=== PATIENT | female | born 1935 | race Caucasian/White ===

== ENCOUNTER 2022-05-05 19:23 | Inpatient (IN) | payer MEDICARE ==
[~2022-05-05] VITALS: Ht 170.2 cm; Wt 83.0 kg
[~2022-05-05 19:23] MED LIST: 3IN1 COMMODE; ACETAMINOPHEN325 MG PO; ALPHAGAN 020 DROPS/M OU; ANTIVERT25 MG PO; ASPIRIN EC81 MG PO; ATARAX25 MG PO; ATENOLOL-CHLOR1 EAC1 PO; AUGMENTIN 875-1 EACH PO; CALCIUM600 MG PO; CIPRO500 MG PO; CLARITIN10 MG PO; COZAAR 100MG T100 MG PO; COZAAR100 MG PO; CRESTOR20 M1 PO; DICLO GEL1 EACH TOP; FEOSOL325 MG PO; GLUCOTROL10 MG PO; HUMALOG 75100 UNIT/M SC; HUMALOG100 UNIT/1 SC; IRBESARTAN300 MG PO; LACTINEX1 EACH PO; LANTUS **100 UNITS/ SC; LASIX20 MG PO; LUMIGAN5 ML OU; MAGNESIUM OXID400 MG PO; NORVASC5 MG PO; OSTEO BI-FLEX1 EAC1 PO; PANTOPRAZOLE SO40 MG PO; REFRESH TEARS15 ML OU; SYNTHROID100 MCG PO; VITAMIN B-121000 MC1 PO; VITAMIN D31000 UNIT PO; VOLTAREN ARTHRI20 GM TOP; ZOLOFT50 MG PO; [UNRECOGNIZED DRUG - OTHER] PO; [UNRECOGNIZED DRUG - SUPPLY]
[2022-05-05 21:42] LABS: BASOPHIL 0.3 % (0-2); EOSINOPHIL 0 % (0-7); HCT 44.8 % (37.0-47.0); LYMPHOCYTE 13.8 % (15-48); MCH 26.1 pg (25.0-31.0); MCHC 31.3 g/dL (32.0-36.0); MCV 83.4 fL (78.0-100.0); MPV 10.5 fL (6.0-9.5); NEUTROPHIL 66.7 % (41-80); NRBC 0; PLT 160 K/uL (150-400); RBC 5.37 M/uL (4.20-5.40); RDW 23.3 % (11.5-14.0); WBC 6.2 K/uL (4.0-10.5)
[2022-05-05 22:09] LABS: INR 1.06 (0.9-1.2); PROTHROMBIN TIME 13.5 SECONDS (11.9-13.9); PTT 26.1 SECONDS (24.9-34.6)
[2022-05-05 22:10] LABS: ALBUMIN 3.6 g/dL (3.4-5.0); BILIRUBIN - TOTAL 0.7 mg/dL (0.2-1.0); BUN/CREAT RATIO (CALC) 16.7 RATIO; CREATININE 1.26 mg/dL (0.51-0.95); GLOBULIN (CALCULATION) 3.4 g/dL; POTASSIUM 3.9 mmol/L (3.5-5.1)
[2022-05-05 22:23] LABS: CLARITY CLEAR (CLEAR); COLOR YELLOW (YELLOW); GLUCOSE (U) NORMAL (NORMAL); PROTEIN 2+ mg/dL (NEGATIVE); SPECIFIC GRAVITY 1.025 (1.001-1.030)
[2022-05-05 22:24] LABS: BILIRUBIN NEGATIVE (NEGATIVE); BLOOD 2+ Ery/uL (NEGATIVE); LEUKOCYTES NEGATIVE Leu/uL (NEGATIVE); NITRITE NEGATIVE (NEGATIVE); UROBILINOGEN 0.2 mg/dL (0.2-1.0)
[2022-05-06 00:18] LABS: INFLUENZA A NAA NEGATIVE (NEGATIVE)
[2022-05-06 00:32] LABS: CORONAVIRUS 2019 SARS-COV-2 POSITIVE (NEGATIVE)
[2022-05-06] MEDS ORDERED: PAXLOVID 150-11 EACH PO (05:26)
[2022-05-06] MEDS ORDERED: CARDIZEM CD120 MG PO (05:26)
[2022-05-06] MEDS ORDERED: CRESTOR20 MG PO (05:28)
[2022-05-06] MEDS ORDERED: LANTUS **100 UNITS/ SC (05:31)
[2022-05-06] MEDS ORDERED: HUMALOG JU100 UNIT/1 SC (05:33)
[2022-05-06] MEDS ORDERED: TENORMIN50 MG PO (05:35)
[2022-05-06 06:56] LABS: BASOPHIL 0.2 % (0-2); EOSINOPHIL 0 % (0-7); HCT 42.6 % (37.0-47.0); HGB 13.5 g/dl (12.5-16.0); LYMPHOCYTE 20.9 % (15-48); MCH 26.6 pg (25.0-31.0); MCHC 31.7 g/dL (32.0-36.0); MONOCYTE 6.3 % (0-12); MPV 10.6 fL (6.0-9.5); NEUTROPHIL 72.4 % (41-80); NRBC 0; PLT 146 K/uL (150-400); RBC 5.07 M/uL (4.20-5.40); RDW 23.1 % (11.5-14.0); WBC 4.1 K/uL (4.0-10.5)
[2022-05-06 07:26] LABS: BUN/CREAT RATIO (CALC) 19.2 RATIO; CREATININE 1.25 mg/dL (0.51-0.95); POTASSIUM 3.4 mmol/L (3.5-5.1)
[2022-05-07 06:36] LABS: BASOPHIL 0 % (0-2); EOSINOPHIL 0 % (0-7); HCT 39.4 % (37.0-47.0); HGB 12.6 g/dl (12.5-16.0); LYMPHOCYTE 16.9 % (15-48); MCH 26.4 pg (25.0-31.0); MCV 82.6 fL (78.0-100.0); MPV 10.3 fL (6.0-9.5); NEUTROPHIL 74.9 % (41-80); NRBC 0; PLT 157 K/uL (150-400); RBC 4.77 M/uL (4.20-5.40); RDW 22.8 % (11.5-14.0); WBC 5.2 K/uL (4.0-10.5)
[2022-05-07 07:00] LABS: ALBUMIN 2.9 g/dL (3.4-5.0); BILIRUBIN - TOTAL 0.4 mg/dL (0.2-1.0); BUN/CREAT RATIO (CALC) 28.5 RATIO; C-REACTIVE PROTEIN 1.3 mg/dL (<=0.90); CREATININE 1.44 mg/dL (0.51-0.95); GLOBULIN (CALCULATION) 2.9 g/dL; POTASSIUM 3.9 mmol/L (3.5-5.1); TOTAL PROTEIN 5.8 g/dL (6.4-8.2)
[2022-05-08 06:41] LABS: BASOPHIL 0 % (0-2); EOSINOPHIL 0 % (0-7); HCT 40.7 % (37.0-47.0); HGB 12.8 g/dl (12.5-16.0); LYMPHOCYTE 13.4 % (15-48); MCHC 31.4 g/dL (32.0-36.0); MCV 82.6 fL (78.0-100.0); MONOCYTE 3.8 % (0-12); NEUTROPHIL 82.4 % (41-80); NRBC 0; PLT 168 K/uL (150-400); RBC 4.93 M/uL (4.20-5.40); RDW 23.8 % (11.5-14.0); WBC 4.7 K/uL (4.0-10.5)
[2022-05-08 07:27] LABS: BILIRUBIN - TOTAL 0.3 mg/dL (0.2-1.0); BUN/CREAT RATIO (CALC) 32.4 RATIO; CREATININE 1.42 mg/dL (0.51-0.95); GLOBULIN (CALCULATION) 2.8 g/dL; POTASSIUM 3.9 mmol/L (3.5-5.1); TOTAL PROTEIN 5.8 g/dL (6.4-8.2)
[2022-05-08] MEDS ORDERED: HYDRALAZINE HCL25 MG PO (10:20)
[2022-05-08] MEDS ORDERED: LANTUS **100 UNITS/ SC (10:20)
[2022-05-08] MEDS ORDERED: PANTOPRAZOLE SO40 MG PO (10:25)
[2022-05-08] MEDS ORDERED: DEXAMETHASONE 2M2 MG PO (10:25)
[2022-05-08] MEDS ORDERED: DULERA 200 MCG8.8 GM INH (10:25)
[2022-05-08] MEDS ORDERED: PROVENTIL INH (10:25)
[2022-05-08] MEDS ORDERED: VENTOLIN HFA IN18 GM INH (17:33)
== END 2022-05-08 19:35 | disposition home or self-care (01) | DRG 177 ==
LOC: FER 19:23 → FMS 22:42
PROVIDERS: Internal Medicine; Nurse Practitioner; Nurse Practitioner Acute Care; Nurse Practitioner Family; ADMIT Internal Medicine
PROC: 8E0ZXY6 Isolation (ICD-10-PCS; 2022-05-05)
PROC: XW033E5 Introduction of Remdesivir Anti-infective into Peripheral Vein, Percutaneous Approach, New Technology Group 5 (ICD-10-PCS; principal; 2022-05-06)
PROC: 3E0DX3Z Introduction of Anti-inflammatory into Mouth and Pharynx, External Approach (ICD-10-PCS; 2022-05-06)
DX: U07.1 COVID-19 (principal); J12.82 Pneumonia due to coronavirus disease 2019; J96.01 Acute respiratory failure with hypoxia; I16.0 Hypertensive urgency; E11.65 Type 2 diabetes mellitus with hyperglycemia; R79.1 Abnormal coagulation profile; I13.10 Hypertensive heart and chronic kidney disease without heart failure, with stage 1 through stage 4 chronic kidney disease, or unspecified chronic kidney disease; E11.22 Type 2 diabetes mellitus with diabetic chronic kidney disease; N18.30 Chronic kidney disease, stage 3 unspecified; E03.9 Hypothyroidism, unspecified; W19.XXXA Unspecified fall, initial encounter; E78.5 Hyperlipidemia, unspecified; K21.9 Gastro-esophageal reflux disease without esophagitis; F41.9 Anxiety disorder, unspecified; Z79.4 Long term (current) use of insulin; Z90.49 Acquired absence of other specified parts of digestive tract; Z90.710 Acquired absence of both cervix and uterus; Z79.82 Long term (current) use of aspirin; Z79.899 Other long term (current) drug therapy
CPT/HCPCS: 36415; 36600; 71045; 71250; 78580; 80048; 80053; 81001; 82728; 82803; 83036; 83605; 83615; 83735; 83880; 84145; 84439; 84443; 84484; 85025; 85379; 85610; 85730; 86140; 87070; 87088; 87205; 93005; 93970; 94640; 94667; 94668; 94760; 94762; 97162; 97166; 97530-GP; 97535; A9540; C9399; J0360; J0456; J0696; J1650; J1815; J7050; J8540; U0002